=== PATIENT | male | born 1985 | race Two or more races ===

== ENCOUNTER 2022-03-10 15:12 | Emergency (ER) | payer BC, MEDICAID ==
[~2022-03-10] VITALS: Ht 185.4 cm; Wt 97.5 kg
[2022-03-10 15:59] VITALS: BP 142/95
[2022-03-10] MEDS ORDERED: LAMO150T26 PO (16:06)
== END 2022-03-10 16:17 | disposition home or self-care (01) ==
LOC: ER 15:12
DX: F41.9 Anxiety disorder, unspecified (principal); Z76.0 Encounter for issue of repeat prescription